=== PATIENT | male | born 1945 | race Caucasian/White ===

== ENCOUNTER → 2021-03-27 10:25 | Outpatient (CLI) | payer MEDICARE, OTHER, SELFPAY ==
--- NOTE | 2021-03-27 | DI.RAD.S_ITS ---
PROCEDURE: FL UPPER GI W AIR INDICATIONS: DYSPHAGIA COMPARISON: None. FINDINGS: KUB: Postsurgical changes related to laparoscopic gastric banding. Esophagus: The patient could tolerate a minimal amount of oral contrast material, prior to emesis during the examination. There is dilatation of the esophagus. Contrast material is seen just above the gastric band within the distal esophagus/gastric pouch. There is minimal passage of contrast material through the gastric band during the entire examination, despite prolonged observation. Stomach: Stomach is not well evaluated secondary to minimal intraluminal contrast during the entire examination. IMPRESSION: Status post laparoscopic gastric banding, with prominent dilatation of the esophagus as detailed above. Suboptimal evaluation as the patient could tolerate minimal contrast prior to emesis. Dictated by: Carlos Thomas M.D. on 03/27/2021 at 14:53 Approved by: Carlos Thomas M.D. on 03/27/2021 at 14:57
== END ==
PROVIDERS: Referring Provider Surgery; Visit Provider Surgery
DX: R13.10 Dysphagia, unspecified (principal); K22.8 Other specified diseases of esophagus; Z98.84 Bariatric surgery status
CPT/HCPCS: 74246